=== PATIENT | female | born 1980 | race Caucasian/White ===

== ENCOUNTER 2018-05-11 09:43 | Emergency (ER) | payer MEDICAID ==
[~2018-05-11] VITALS: Ht 167.6 cm; Wt 71.2 kg
[2018-05-11 09:49] VITALS: Ht 167.6 cm; Wt 71.2 kg
[2018-05-11 11:33] VITALS: BP 101/62
== END 2018-05-11 11:42 | disposition home or self-care (01) ==
LOC: ED 09:43
DX: O9A.212 Injury, poisoning and certain other consequences of external causes complicating pregnancy, second trimester (principal); S39.81XA Other specified injuries of abdomen, initial encounter; Z3A.15 15 weeks gestation of pregnancy; Z87.19 Personal history of other diseases of the digestive system; W50.0XXA Accidental hit or strike by another person, initial encounter; Y93.89 Activity, other specified; Y92.89 Other specified places as the place of occurrence of the external cause; Y99.8 Other external cause status